=== PATIENT | male | born 1930 | race Caucasian/White ===

== ENCOUNTER 2017-01-01 18:46 | Observation (INO) | payer MEDICARE, OTHER ==
[~2017-01-01] VITALS: Ht 175.3 cm; Wt 75.0 kg
[~2017-01-01 18:46] MED LIST: ACTO15TA11 PO; ASPI1TAB69 PO; LABE100T2 PO; LEVA750T PO; LOVA10TA PO; SYMB160A INH
[2017-01-01 18:51] VITALS: BP 193/84; PULSE 102; RESP 16; TEMP 102.3; O2SAT 92
[2017-01-01 18:54] VITALS: BP 193/84; PULSE 97; RESP 16; O2SAT 96
[2017-01-01] MEDS ORDERED: SODIUM CHLOR 0.9% 1000 ML INJ 1,000 ML IV ONE (19:01)
[2017-01-01] MEDS ORDERED: D3 U5000 PO (19:06)
[2017-01-01] MEDS ORDERED: TAMS0.4C4 PO (19:06)
--- NOTE | 2017-01-01 19:07 | PD ---
HPI Chief Complaint: General Weakness Time Seen by Provider: 18:57 Travel History International Travel<30 days: No Contact w/Intl Traveler<30days: No Traveled to known affect area: No History of Present Illness HPI 86-year-old male with history of diabetes brought in by ambulance from home for evaluation of fever and altered mental status. On my assessment the patient is awake and alert, however he is confused and does not know where he is or why he is here. He denies any physical complaints. He is a very poor historian. Chart review shows that he was admitted for sepsis and pneumonia in October 2016. PFSH Past Medical History Arthritis: No Asthma: No Anxiety: No Heart Rhythm Problems: No Cancer: No Cardiovascular Problems: No High Cholesterol: Yes Chemotherapy: No Chest Pain: No Congestive Heart Failure: No COPD: No Cerebrovascular Accident: No Diabetes: Yes Diminished Hearing: No GERD: No Hiatal Hernia: No Hypertension: Yes Kidney Stones: No Psychiatric: No Respiratory: No Radiation Therapy: No Renal Failure: No Seizures: No Sickle Cell Disease: No Sleep Apnea: No Thyroid Disease: No Past Surgical History Abdominal Surgery: No AICD: No Ear Surgery: No Eye Surgery: No Genitourinary Surgery: No Gynecologic Surgery: No Joint Replacement: No Oral Surgery: No Pacemaker: No Thoracic Surgery: No Social History Alcohol Use: Yes (on occasion) Tobacco Use: No (quit 40 years ago) Substance Use: No Allergies-Medications (Allergen,Severity, Reaction): Coded Allergies: No Known Allergies (Unverified , 10/09/16) Reported Meds & Prescriptions Reported Meds & Active Scripts Active Actos (Pioglitazone HCl) 15 Mg Tab 30 Mg PO DAILYAC Labetalol (Labetalol HCl) 100 Mg Tab 200 Mg PO BID Symbicort Inh (Budesonide/Formoterol Fumarate) 160-4.5 Mcg/Act Aero 1 Puff INH Q12HR Reported D3 Ultra Strength (Cholecalciferol) 5,000 Unit Cap 5,000 Units PO DAILY Tamsulosin (Tamsulosin HCl) 0.4 Mg Cap 0.4 Mg PO HS Lovastatin 10 Mg Tab 10 Mg PO DAILY Aspirin 81 Mg Tabdr 81 Mg PO DAILY Review of Systems ROS Limitations: Poor Historian Physical Exam Narrative GENERAL: Well-developed, well-nourished, awake, alert, no acute distress. SKIN: Warm and dry. No rash. HEAD: Atraumatic. Normocephalic. EYES: Pupils equal and round. No scleral icterus. No injection or drainage. ENT: Mucous membranes pink and moist. NECK: Trachea midline. No JVD. No nuchal rigidity. CARDIOVASCULAR: Tachycardic, rate 101, regular. RESPIRATORY: No accessory muscle use. Clear to auscultation. Breath sounds equal bilaterally. GASTROINTESTINAL: Abdomen soft, non-tender, nondistended. MUSCULOSKELETAL: No obvious deformities. No clubbing. No cyanosis. No edema. NEUROLOGICAL: Awake and alert. No obvious cranial nerve deficits. Motor grossly within normal limits. Normal speech. Data Data Last Documented VS Vital Signs Date Time Temp Pulse Resp B/P Pulse Ox O2 Delivery O2 Flow Rate FiO2 01/01/17 21:12 88 16 132/61 96 Room Air 01/01/17 20:20 99.9 01/01/17 19:27 2 Orders Electrocardiogram (01/01/17 19:01) Complete Blood Count With Diff (01/01/17 19:01) Comprehensive Metabolic Panel (01/01/17 19:01) Lactic Acid Sepsis Protocol (01/01/17 19:01) Urinalysis - C+S If Indicated (01/01/17 19:01) Influenzae A/B Antigen (01/01/17 19:01) Blood Culture (01/01/17 19:01) Chest, Single Ap (01/01/17 19:01) Blood Glucose (01/01/17 19:01) Ecg Monitoring (01/01/17 19:01) Iv Access Insert/Monitor (01/01/17 19:01) Oximetry (01/01/17 19:01) Oxygen Administration (01/01/17 19:01) Sodium Chlor 0.9% 1000 Ml Inj (Ns 1000 M (01/01/17 19:01) Acetaminophen (Tylenol) (01/01/17 19:15) Ct Brain W/O Iv Contrast(Rout) (01/01/17 ) Cath For Specimen (01/01/17 19:43) Place In Observation (01/01/17 ) Vital Signs (Adult) Q4H (01/01/17 21:29) Neuro Checks Q4H (01/01/17 21:29) Activity Oob With Assistance (01/01/17 21:29) Director [employer] / Telemetry .CONTINUOUS (01/01/17 21:29) Diet 1800 Ada Cons Carb (01/02/17 Breakfast) Diet Heart Healthy (01/02/17 Breakfast) Sodium Chlor 0.9% 1000 Ml Inj (Ns 1000 M (01/01/17 21:29) Sodium Chloride 0.9% Flush (Ns Flush) (01/01/17 21:30) Sodium Chloride 0.9% Flush (Ns Flush) (01/02/17 09:00) Acetaminophen (Tylenol) (01/01/17 21:30) Ondansetron Inj (Zofran Inj) (01/01/17 21:30) Bisacodyl Supp (Dulcolax Supp) (01/01/17 21:30) Docusate Sodium (Colace) (01/01/17 21:30) Sennosides (Senokot) (01/01/17 21:30) Basic Metabolic Panel (Bmp) (01/02/17 06:00) Complete Blood Count With Diff (01/02/17 06:00) Resp Oxygen Puneet C Titrat 1-4 L (01/01/17 ) St Request For Service (01/01/17 21:29) Case Management Consult (01/01/17 21:29) Scd Bilateral/Knee High MIKE.BID (01/01/17 21:29) Acetaminophen (Tylenol) (01/01/17 21:30) Naloxone Inj (Narcan Inj) (01/01/17 21:30) St Cognitive Eval Order (01/01/17 21:29) Mri Brain W/O Contrast (01/01/17 ) Eeg Study (01/01/17 ) Labs Laboratory Tests Test 01/01/17 01/01/17 01/01/17 19:00 19:20 20:26 White Blood Count 5.6 TH/MM3 Red Blood Count 4.69 MIL/MM3 Hemoglobin 13.0 GM/DL Hematocrit 38.3 % Mean Corpuscular Volume 81.8 FL Mean Corpuscular Hemoglobin 27.8 PG Mean Corpuscular Hemoglobin 33.9 % Concent Red Cell Distribution Width 15.6 % Platelet Count 167 TH/MM3 Mean Platelet Volume 7.7 FL Neutrophils (%) (Auto) 86.0 % Lymphocytes (%) (Auto) 8.5 % Monocytes (%) (Auto) 5.2 % Eosinophils (%) (Auto) 0.0 % Basophils (%) (Auto) 0.3 % Neutrophils # (Auto) 4.8 TH/MM3 Lymphocytes # (Auto) 0.5 TH/MM3 Monocytes # (Auto) 0.3 TH/MM3 Eosinophils # (Auto) 0.0 TH/MM3 Basophils # (Auto) 0.0 TH/MM3 CBC Comment DIFF FINAL Differential Comment Sodium Level 132 MEQ/L Potassium Level 4.1 MEQ/L Chloride Level 97 MEQ/L Carbon Dioxide Level 26.9 MEQ/L Anion Gap 8 MEQ/L Blood Urea Nitrogen 19 MG/DL Creatinine 1.35 MG/DL Estimat Glomerular Filtration 50 ML/MIN Rate Random Glucose 187 MG/DL Calcium Level 8.6 MG/DL Total Bilirubin 0.7 MG/DL Aspartate Amino Transf 35 U/L (AST/SGOT) Alanine Aminotransferase 26 U/L (ALT/SGPT) Alkaline Phosphatase 69 U/L Total Protein 7.4 GM/DL Albumin 3.4 GM/DL Lactic Acid Level 1.2 mmol/L Urine Color YELLOW Urine Turbidity CLEAR Urine pH 5.0 Urine Specific [place] 1.017 Urine Protein TRACE mg/dL Urine Glucose (UA) 70 mg/dL Urine Ketones 40 mg/dL Urine Occult Blood MOD Urine Nitrite NEG Urine Bilirubin NEG Urine Urobilinogen LESS THAN 2.0 MG/DL Urine Leukocyte Esterase NEG Urine RBC 33 /hpf Urine WBC 2 /hpf Urine Mucus FEW /lpf Microscopic Urinalysis Comment CATH-CULT NOT IND MDM Medical Decision Making Medical Screen Exam Complete: Yes Emergency Medical Condition: Yes Medical Record Reviewed: Yes Differential Diagnosis Sepsis, pneumonia, metabolic abnormality, intracranial abnormality, meningitis/ encephalitis unlikely Narrative Course Initial vital signs show heart rate 102, blood pressure 193/84, pulse ox 92% on room air, oral temp of 102.3F. CBC shows to be BC 5.6, hemoglobin 13, hematocrit 38.3, platelets 167, neutrophils 86%. CMP is remarkable for sodium 132, chloride 97, BUN 19, creatinine 1.35, GFR 50 which is slightly worse than his baseline, random glucose 187, otherwise unremarkable. Lactic acid is 1.2. Influenza is negative. UA shows 40 ketones, moderate occult blood, 70 glucose, 33 RBCs. This was a catheterized specimen. Not suggestive of UTI. Chest X her shows no acute disease. Patient was given Tylenol. His tachycardia has resolved. He is still confused. He is able to tell me that he is in the emergency department. He denies any physical complaints. Several attempts were made to contact any family members, however 4 months or disconnected and we were unsuccessful. Given fever and delirium, the patient be admitted for overnight observation. There is no nuchal rigidity. I am not suspicious for meningitis or encephalitis. Patient could be suffering from a viral illness. Blood culture sent. Case discussed with hospitalist Dr. Clark who will admit the patient to his service for overnight observation for fever, delirium. Diagnosis Primary Impression: Fever Qualified Code: R50.9 - Fever, unspecified fever cause Additional Impression: Delirium Admitting Information Admitting Physician Requests: Observation Александр Silva MD Jan 01, 2017 19:07
[2017-01-01] MEDS ORDERED: ACETAMINOPHEN 325 MG TAB PO ONE (19:15)
[2017-01-01 19:27] VITALS: RESP 16; O2SAT 98
[2017-01-01 19:47] LABS: AUTOMATED NEUTROPHIL # 4.8 TH/MM3 (1.8-7.7); BASOPHIL % 0.3 % (0.0-2.0); HEMATOCRIT 38.3 % (39.0-51.0); HEMO FLAGS DIFF FINAL; LYMPH % 8.5 % (9.0-44.0); LYMPHOCYTE # 0.5 TH/MM3 (1.0-4.8); MEAN CELL VOLUME 81.8 FL (80.0-100.0); MEAN CORPUSCULAR HEMOGLOBIN 27.8 PG (27.0-34.0); MEAN CORPUSCULAR HGB CONC 33.9 % (32.0-36.0); MONO % 5.2 % (0.0-8.0); PLATELET COUNT 167 TH/MM3 (150-450); RED BLOOD COUNT 4.69 MIL/MM3 (4.50-5.90); RED CELL DISTRIBUTION WIDTH 15.6 % (11.6-17.2); WHITE BLOOD COUNT 5.6 TH/MM3 (4.0-11.0)
--- NOTE | 2017-01-01 19:56 | RADRPT ---
EXAM DATE/TIME: 01/01/2017 19:12 [facility] COMPARISON: CHEST SINGLE AP, October 09, 2016, 22:58. INDICATIONS : Fever MEDICAL HISTORY : Hypertension. Diabetes mellitus type II. SURGICAL HISTORY : None. ENCOUNTER: Initial ACUITY: 1 day PAIN SCORE: 0/10 LOCATION: Bilateral chest FINDINGS: A single view of the chest demonstrates the lungs to be symmetrically aerated without evidence of mas s, infiltrate or effusion. The cardiomediastinal contours are unremarkable. Osseous structures are intact. CONCLUSION: No acute disease. Wojciech Merino MD on January 01, 2017 at 19:54 Board Certified Radiologist. This report was verified electronically.
[2017-01-01 20:05] LABS: ALKALINE PHOSPHATASE 69 U/L (45-117); ALT (GPT) 26 U/L (12-78); ANION GAP 8 MEQ/L (5-15); AST (GOT) 35 U/L (15-37); BICARBONATE 26.9 MEQ/L (21.0-32.0); BLOOD UREA NITROGEN 19 MG/DL (7-18); CHLORIDE 97 MEQ/L (98-107); GLOMERULAR FILTRATION RATE 50 ML/MIN (>89); POTASSIUM 4.1 MEQ/L (3.5-5.1); SODIUM (NA) 132 MEQ/L (136-145); TOTAL BILIRUBIN ADULT 0.7 MG/DL (0.2-1.0)
--- NOTE | 2017-01-01 20:09 | RADRPT ---
EXAM DATE/TIME: 01/01/2017 19:34 [facility] COMPARISON: CT BRAIN W/O CONTRAST, July 12, 2015, 23:09. INDICATIONS : Altered mental status and weakness. RADIATION DOSE: 41.46 CTDIvol (mGy) MEDICAL HISTORY : Hypertension. Diabetes mellitus type 1. SURGICAL HISTORY : None. ENCOUNTER: Initial ACUITY: 2 days PAIN SCALE: Non-responsive LOCATION: cranial TECHNIQUE: Multiple contiguous axial images were obtained of the head. Using automated exposure control and adj ustment of the mA and/or kV according to patient size, radiation dose was kept as low as reasonably a chievable to obtain optimal diagnostic quality images. FINDINGS: CEREBRUM: Generalized volume loss and mild diffuse white matter hypodensity are noted. There's no evidence of a cute infarct, hemorrhage or mass effect. POSTERIOR FOSSA: The cerebellum and brainstem are intact. The 4th ventricle is midline. The cerebellopontine angle i s unremarkable. EXTRACRANIAL: The visualized portion of the orbits is intact. SKULL: The calvaria is intact. No evidence of skull fracture. CONCLUSION: Mild generalized atrophy and chronic white matter changes. No evidence of acute infarct, hemorrhage, mass or edema. Wojciech Merino MD on January 01, 2017 at 20:06 Board Certified Radiologist. This report was verified electronically.
[2017-01-01 20:20] VITALS: TEMP 99.9
[2017-01-01 20:43] LABS: BLOOD, URINE MOD (NEG); GLUCOSE,URINE 70 mg/dL (NEG); KETONE, URINE 40 mg/dL (NEG); MUCUS URINE FEW /lpf (OCC); NITRITE,URINE NEG (NEG); URINE COLOR YELLOW (YELLW/STRAW)
[2017-01-01 20:45] LABS: COMMENT (UR) CATH-CULT NOT IND; CULTURE IF INDICATED CATH CULTURE NOT IND
[2017-01-01 21:12] VITALS: BP 132/61; PULSE 88; RESP 16; O2SAT 96
[2017-01-01] MEDS ORDERED: SENNOSIDES 8.6 MG TAB PO PRN (21:30)
[2017-01-01] MEDS ORDERED: ACETAMINOPHEN 325 MG TAB PO PRN ×2 (21:30)
[2017-01-01] MEDS ORDERED: SODIUM CHLORIDE 0.9% FLUSH 5 ML FLUSH FLUSH PRN (21:30)
[2017-01-01] MEDS ORDERED: NALOXONE HCL 0.4 MG/ML AMP IV PRN (21:30)
[2017-01-01] MEDS ORDERED: ONDANSETRON HCL 4 MG/2 ML VIAL IVP PRN (21:30)
[2017-01-01] MEDS ORDERED: BISACODYL 10 MG SUPP PR PRN (21:30)
[2017-01-01] MEDS ORDERED: DEXTROSE 50% IN WATER 50 ML VIAL(D50) IV PUSH PRN (21:45)
[2017-01-01] MEDS ORDERED: GLUCAGON 1 MG/ML VIAL OTHER PRN (21:45)
--- NOTE | 2017-01-01 23:23 | RADRPT ---
EXAM DATE/TIME: 01/01/2017 22:44 [facility] COMPARISON: No previous studies available for comparison. INDICATIONS : Altered mental status. CVA. MEDICAL HISTORY : Diabetes mellitus type 2. Hypertension. SURGICAL HISTORY : Unknown. ENCOUNTER: Subsequent ACUITY: 1 day PAIN SCORE: 0/10 LOCATION: head. TECHNIQUE: Multiplanar, multisequence MRI of the brain was performed without contrast. FINDINGS: CEREBRUM: The ventricles are mildly enlarged No evidence of midline shift, mass lesion, hemorrhage or acute inf arction. No extraaxial fluid collections are seen. The pituitary gland and suprasellar cistern are normal in configuration. WHITE MATTER: Mild signal abnormalities are seen in the white matter. POSTERIOR FOSSA: The cerebellum and brainstem are intact. The 4th ventricle is midline. The cerebellopontine angle is unremarkable. The cerebellar tonsils are normal in position. DIFFUSION IMAGING: No focal areas of restricted diffusion are seen. No evidence of acute infarction. EXTRACRANIAL: The visualized portions of the orbits and paranasal sinuses are unremarkable. CONCLUSION: 1. No acute findings. Stable exam since July 2015. No recent infarct. Chronic mild to moderate w cathy matter ischemic changes and cortical volume loss. Jose Gonzalez MD on January 01, 2017 at 23:18 Board Certified Radiologist. This report was verified electronically.
--- NOTE | 2017-01-01 23:24 | HHI.HP ---
HPI [facility] Primary Care Physician Unknown Admission Diagnosis fever, delirium Diagnoses: Chief Complaint: Weakness Travel History International Travel<30 Days: No Contact w/Intl Traveler <30 Da: No Traveled to Known Affected Are: No Sepsis Criteria SIRS Criteria (2 or more): Temp > 100.9 or < 96.8, Heart rate over 90 Sepsis Criteria (SIRS+source): Infect source susp/known Criteria Outcome: Meets sepsis criteria History of Present Illness This is a 86-year-old male with history of diabetes, hyperlipidemia and hypertension. Brought in by ambulance from home for evaluation of fever and altered mental status. Patient states he came in because of weakness. He lives with his ex- Kacey but unable to remember her number stating that his mind is fuzzy right now. He recalls being brought in by ambulance. On my assessment the patient is awake and alert, oriented to person, place, month, date but not year. Patient remembers me from previous admission. According to ER physician, he did not know where he is or why he is here. Patient reports that he has been sick for the past week. Complains of worsening weakness stating he was not able to stand up because his legs were so weak today, intermittent fever temperature not taken, anorexia, productive cough of clear phlegm, runny nose and urinary frequency. Denies headache, dizziness, nausea, shortness of breath, abdominal pain, diarrhea, neck pain, numbness and focal weakness. Chart review shows that he was admitted for sepsis and pneumonia in October 2016. Review of Systems Constitutional: COMPLAINS OF: Fatigue, Fever, DENIES: Diaphoretic episodes, Weight gain, Weight loss, Chills, Dizziness, Change in appetite, Night Sweats Endocrine: DENIES: Heat/cold intolerance, Polydipsia, Polyuria, Polyphagia Eyes: DENIES: Blurred vision, Diplopia, Vision loss, Photosensitivity Ears, nose, mouth, throat: COMPLAINS OF: Running Nose, DENIES: Tinnitus, Vertigo, Throat pain, Hoarseness, Epistaxis, Odynophagia Respiratory: COMPLAINS OF: Cough, DENIES: Wheezing, Hemoptysis, Sputum production, Shortness of breath Cardiovascular: DENIES: Chest pain, Palpitations, Syncope, Dyspnea on Exertion , PND, Lower Extremity Edema, Orthopnea, Claudication Gastrointestinal: COMPLAINS OF: Anorexia, DENIES: Abdominal pain, Black stools , Bloody stools, Constipation, Diarrhea, Nausea, Vomiting, Difficulty Swallowing Genitourinary: COMPLAINS OF: Urinary frequency, DENIES: Urinary incontinence, Urgency, Hematuria, Dysuria, Nocturia, Penile Discharge Integumentary: DENIES: Rash Neurologic: DENIES: Headache, Localized weakness, Seizures, Tremor, Poor Balance Psychiatric: COMPLAINS OF: Confusion, DENIES: Anxiety, Depression, Hallucinations, Agitation, Suicidal Ideation, Homicidal Ideation, Delusions Past Family Social History Past Medical History As previously mentioned Past Surgical History Denies Reported Medications Actos (Pioglitazone HCl) 15 Mg Tab 30 Mg PO DAILYAC Labetalol (Labetalol HCl) 100 Mg Tab 200 Mg PO BID Symbicort Inh (Budesonide/Formoterol Fumarate) 160-4.5 Mcg/Act Aero 1 Puff INH Q12HR Reported D3 Ultra Strength (Cholecalciferol) 5,000 Unit Cap 5,000 Units PO DAILY Tamsulosin (Tamsulosin HCl) 0.4 Mg Cap 0.4 Mg PO HS Lovastatin 10 Mg Tab 10 Mg PO DAILY Aspirin 81 Mg Tabdr 81 Mg PO DAILY Allergies: Coded Allergies: No Known Allergies (Unverified , 10/09/16) Family History No diabetes Social History Occasional alcohol use. Quit tobacco years ago. Denies illicit drugs Physical Exam Vital Signs Vital Signs Date Time Temp Pulse Resp B/P Pulse Ox O2 Delivery O2 Flow Rate FiO2 01/01/17 21:12 88 16 132/61 96 Room Air 01/01/17 20:20 99.9 01/01/17 19:28 16 97 Room Air 01/01/17 19:27 97 Nasal Cannula 2 01/01/17 19:27 16 98 Room Air 01/01/17 18:54 97 16 193/84 96 Nasal Cannula 2 01/01/17 18:51 102.3 102 16 193/84 92 Physical Exam GENERAL: This is a well-nourished, well-developed patient, in no apparent distress. SKIN: No rashes, ecchymoses or lesions. Cool and dry. HEAD: Atraumatic. Normocephalic. No temporal or scalp tenderness. EYES: Pupils equal round and reactive. Extraocular motions intact. No scleral icterus. No injection or drainage. ENT: Nose without bleeding, purulent drainage or septal hematoma. Throat without erythema, tonsillar hypertrophy or exudate. Uvula midline. Airway patent. Dry oral mucosa. No sinus tenderness NECK: Trachea midline. No JVD or lymphadenopathy. Supple, nontender, no meningeal signs. CARDIOVASCULAR: Regular rate and rhythm without murmurs, gallops, or rubs. RESPIRATORY: Clear to auscultation. Breath sounds equal bilaterally. No wheezes , rales, or rhonchi. GASTROINTESTINAL: Abdomen soft, non-tender, nondistended. No guarding. MUSCULOSKELETAL: Extremities without clubbing, cyanosis, or edema. No joint tenderness, effusion, or edema noted. No calf tenderness. Negative Homans sign bilaterally. NEUROLOGICAL: Awake and alert. Oriented to person, place, month and date. Cranial nerves II through XII intact. Generalized weakness. Normal speech. Laboratory Laboratory Tests Test 01/01/17 01/01/17 01/01/17 19:00 19:20 20:26 White Blood Count 5.6 Red Blood Count 4.69 Hemoglobin 13.0 Hematocrit 38.3 Mean Corpuscular Volume 81.8 Mean Corpuscular Hemoglobin 27.8 Mean Corpuscular Hemoglobin 33.9 Concent Red Cell Distribution Width 15.6 Platelet Count 167 Mean Platelet Volume 7.7 Neutrophils (%) (Auto) 86.0 Lymphocytes (%) (Auto) 8.5 Monocytes (%) (Auto) 5.2 Eosinophils (%) (Auto) 0.0 Basophils (%) (Auto) 0.3 Neutrophils # (Auto) 4.8 Lymphocytes # (Auto) 0.5 Monocytes # (Auto) 0.3 Eosinophils # (Auto) 0.0 Basophils # (Auto) 0.0 CBC Comment DIFF FINAL Differential Comment Sodium Level 132 Potassium Level 4.1 Chloride Level 97 Carbon Dioxide Level 26.9 Anion Gap 8 Blood Urea Nitrogen 19 Creatinine 1.35 Estimat Glomerular Filtration 50 Rate Random Glucose 187 Calcium Level 8.6 Total Bilirubin 0.7 Aspartate Amino Transf 35 (AST/SGOT) Alanine Aminotransferase 26 (ALT/SGPT) Alkaline Phosphatase 69 Total Protein 7.4 Albumin 3.4 Lactic Acid Level 1.2 Urine Color YELLOW Urine Turbidity CLEAR Urine pH 5.0 Urine Specific [place] 1.017 Urine Protein TRACE Urine Glucose (UA) 70 Urine Ketones 40 Urine Occult Blood MOD Urine Nitrite NEG Urine Bilirubin NEG Urine Urobilinogen LESS THAN 2.0 Urine Leukocyte Esterase NEG Urine RBC 33 Urine WBC 2 Urine Mucus FEW Microscopic Urinalysis Comment CATH-CULT NOT IND Date/Time Procedure Status Source Growth 01/01/17 19:15 Influenza Types A,B Antigen (CHRISTY) - Final Complete Nasal Washing NEGATIVE FOR FLU A AND B ANTIGEN.... 01/01/17 19:15 Aerobic Blood Culture Received Blood Peripheral Pending 01/01/17 19:15 Anaerobic Blood Culture Received Blood Peripheral Pending Result Diagram: 01/01/17189901/01/171899 Imaging Chest x-ray image interpreted by me with no acute cardiopulmonary disease Last Impressions Chest X-Ray 01/01/171900 Signed Impressions: Service Date/Time: Sunday, January 01, 2017 19:12 - CONCLUSION: No acute disease. Wojciech Merino MD Head CT 01/01/17 0000 Signed Impressions: Service Date/Time: Sunday, January 01, 2017 19:34 - CONCLUSION: Mild generalized atrophy and chronic white matter changes. No evidence of acute infarct, hemorrhage, mass or edema. Wojciech Merino MD Assessment and Plan Problem List: (1) Sepsis ICD Code: A41.9 Status: Resolved Assessment and Plan This is a 86-year-old male with history of diabetes, hyperlipidemia and hypertension. Brought in by ambulance from home for evaluation of fever and altered mental status. Patient states he came in because of weakness. Patient reports that he has been sick for the past week. Complains of worsening weakness stating he was not able to stand up because his legs were so weak today , intermittent fever temperature not taken, anorexia, productive cough of clear phlegm, runny nose and urinary frequency. Sepsis with fever and tachycardia secondary to URI likely viral infection. Chest x-ray, flu screen and urinalysis unremarkable. Supportive therapy with IV hydration and symptomatic treatment. Follow-up blood cultures Encephalopathy secondary to above. Head CT without acute findings. Obtain MRI. Neurochecks. If persistent confusion and fever may need lumbar puncture Deconditioning. Consult physical therapy Traumatic hematuria. Monitor discontinue Evans catheter in the morning Chronic Kidney disease stage III. Creatinine slightly higher than previous secondary to dehydration. Start IV hydration Chronic medical conditions of diabetes, hyperlipidemia and hypertension. Continue outpatient medications as appropriate. Monitor fingersticks with sliding scale coverage DVT prophylaxis with SCD and early ambulation. Hold pharmacological prophylaxis may need lumbar puncture Discussed Condition With Patient ER staff Enrique Clark MD Jan 01, 2017 23:24
[2017-01-01] MEDS: SODIUM CHLOR 0.9% 1000 ML INJ 1,000 ML IV SCH (23:32)
[2017-01-01] MEDS: DOCUSATE SODIUM 100 MG CAP PO SCH (23:32)
[2017-01-02] VITALS (7 sets, daily range): BP systolic 99–142; BP diastolic 50–64; PULSE 68–88; RESP 17–20; TEMP 96.8–98.1; O2SAT 95–97
[2017-01-02 04:47] LABS: AUTOMATED NEUTROPHIL # 3.6 TH/MM3 (1.8-7.7); BASOPHIL % 0.1 % (0.0-2.0); HEMATOCRIT 33.7 % (39.0-51.0); HEMO FLAGS DIFF FINAL; MEAN CELL VOLUME 81.4 FL (80.0-100.0); MEAN CORPUSCULAR HEMOGLOBIN 27.2 PG (27.0-34.0); MEAN CORPUSCULAR HGB CONC 33.5 % (32.0-36.0); MONO % 8.1 % (0.0-8.0); NEUT % 72.8 % (16.0-70.0); PLATELET COUNT 159 TH/MM3 (150-450); RED BLOOD COUNT 4.14 MIL/MM3 (4.50-5.90); RED CELL DISTRIBUTION WIDTH 15.8 % (11.6-17.2)
[2017-01-02 05:12] LABS: BICARBONATE 25.9 MEQ/L (21.0-32.0); POTASSIUM 3.7 MEQ/L (3.5-5.1)
[2017-01-02] MEDS: INSULIN ASPART SUPPLEMENTAL SCALE SQ SCH ×4 (06:29→20:40)
[2017-01-02] MEDS: DOCUSATE SODIUM 100 MG CAP PO SCH ×3 (09:00→20:40)
[2017-01-02] MEDS: ASPIRIN EC 81 MG TABEC PO SCH (09:35)
[2017-01-02] MEDS: PIOGLITAZONE HCL 30 MG TAB PO SCH (09:35)
[2017-01-02] MEDS: LABETALOL HCL 200 MG TAB PO SCH ×2 (09:35→20:40)
[2017-01-02] MEDS: CHOLECALCIFEROL (VIT D3) 5000 UNIT CAP PO SCH (09:35)
[2017-01-02] MEDS: BUDESONIDE-FORMOTEROL 160/4.5 MCG INHALER INH SCH ×2 (09:35→20:40)
[2017-01-02] MEDS: PRAVASTATIN SOD 10 MG TAB PO SCH (09:35)
[2017-01-02] MEDS: SODIUM CHLORIDE 0.9% FLUSH 5 ML FLUSH FLUSH SCH ×2 (09:35→20:42)
[2017-01-02] MEDS: SODIUM CHLOR 0.9% 1000 ML INJ 1,000 ML IV SCH ×2 (09:59→22:29)
--- NOTE | 2017-01-02 10:55 | HHI.PR ---
Subjective Remarks Follow-up encephalopathy 01/02/17-patient seen and examined, alert and oriented 2, afebrile. No acute event overnight Objective Vitals Vital Signs Date Time Temp Pulse Resp B/P Pulse Ox O2 Delivery O2 Flow Rate FiO2 01/02/17 07:46 97.8 82 20 109/62 97 01/02/17 02:53 97.9 68 18 103/52 96 01/02/17 00:18 98.0 84 18 130/61 96 01/01/17 21:12 88 16 132/61 96 Room Air 01/01/17 20:20 99.9 01/01/17 19:28 16 97 Room Air 01/01/17 19:27 97 Nasal Cannula 2 01/01/17 19:27 16 98 Room Air 01/01/17 18:54 97 16 193/84 96 Nasal Cannula 2 01/01/17 18:51 102.3 102 16 193/84 92 I/O 01/01/17 01/01/17 01/01/17 01/02/17 01/02/17 01/02/17 07:00 15:00 23:00 07:00 15:00 23:00 Intake Total 120 ml Balance 120 ml Intake Oral 120 ml Result Diagram: 01/02/17 0413 01/02/17 0413 Imaging Last Impressions Chest X-Ray 01/01/17 1901 Signed Impressions: Service Date/Time: Sunday, January 01, 2017 19:12 - CONCLUSION: No acute disease. Wojciech Merino MD Head CT 01/01/17 0000 Signed Impressions: Service Date/Time: Sunday, January 01, 2017 19:34 - CONCLUSION: Mild generalized atrophy and chronic white matter changes. No evidence of acute infarct, hemorrhage, mass or edema. Wojciech Merino MD Brain MRI 01/01/17 0000 Signed Impressions: Service Date/Time: Sunday, January 01, 2017 22:44 - CONCLUSION: 1. No acute findings. Stable exam since July 2015. No recent infarct. Chronic mild to moderate white matter ischemic changes and cortical volume loss. Jose Gonzalez MD Objective Remarks GENERAL: NAD SKIN: Warm and dry. HEAD: Normocephalic. EYES: No scleral icterus. No injection or drainage. NECK: Supple, trachea midline. No JVD or lymphadenopathy. CARDIOVASCULAR: Regular rate and rhythm without murmurs, gallops, or rubs. RESPIRATORY: Breath sounds equal bilaterally. No accessory muscle use. GASTROINTESTINAL: Abdomen soft, non-tender, nondistended. MUSCULOSKELETAL: No cyanosis, or edema. BACK: Nontender without obvious deformity. No CVA tenderness. A/P Problem List: (1) Sepsis ICD Code: A41.9 Status: Resolved (2) Toxic metabolic encephalopathy ICD Code: G92 Status: Acute (3) Acute renal failure ICD Code: N17.9 Status: Acute Assessment and Plan 86-year-old male with 1-Sepsis with fever and tachycardia secondary to URI likely viral infection. Resolved. Chest x-ray, flu screen and urinalysis unremarkable. Supportive therapy with IV hydration and symptomatic treatment. Follow-up blood cultures 2-Toxic metabolic Encephalopathy secondary to above. Resolved. Head CT without acute findings. 3-Physical Deconditioning. Consult physical therapy 4-Traumatic hematuria. Resolved 5-Acute on Chronic Kidney disease stage III. Creatinine slightly higher than previous secondary to dehydration. Improved with IV fluid hydration 6-Chronic medical conditions of diabetes, hyperlipidemia and hypertension. Continue outpatient medications as appropriate. Monitor fingersticks with sliding scale coverage 7-DVT prophylaxis with SCD and early ambulation. Discharge Planning Discharge patient to home Condition on discharge: Improved Regular Diet as tolerated Ad Felicia activity Rx written:none Follow-up with primary care physician Iain Maddox MD Jan 02, 2017 10:55
[2017-01-02] MEDS: TAMSULOSIN HCL 0.4 MG CAP PO SCH (20:40)
[2017-01-03 03:08] VITALS: BP 100/45; PULSE 79; RESP 16; TEMP 98.1; O2SAT 95
[2017-01-03] MEDS: INSULIN ASPART SUPPLEMENTAL SCALE SQ SCH ×4 (06:12→21:00)
[2017-01-03 07:26] VITALS: BP 114/58; PULSE 78; RESP 18; TEMP 98; O2SAT 93
[2017-01-03] MEDS: SODIUM CHLORIDE 0.9% FLUSH 5 ML FLUSH FLUSH SCH ×2 (08:09→21:00)
--- NOTE | 2017-01-03 08:21 | HHI.PR ---
Subjective Remarks Follow-up encephalopathy 01/02/17-patient seen and examined, alert and oriented 2, afebrile. No acute event overnight 01/03/17-patient seen and examined, alert and oriented 2, patient is asking if he can be discharged home today. No acute event overnight. Objective Vitals Vital Signs Date Time Temp Pulse Resp B/P Pulse Ox O2 Delivery O2 Flow Rate FiO2 01/03/17 07:26 98.0 78 18 114/58 93 01/03/17 03:08 98.1 79 16 100/45 95 01/02/17 23:34 98.1 88 18 104/53 95 01/02/17 20:00 96.8 86 18 142/64 96 01/02/17 20:00 96 01/02/17 16:06 97.6 77 17 118/56 95 01/02/17 11:42 97.9 75 18 99/50 95 Result Diagram: 01/02/17 0413 01/02/17 0413 Objective Remarks GENERAL: NAD SKIN: Warm and dry. HEAD: Normocephalic. EYES: No scleral icterus. No injection or drainage. NECK: Supple, trachea midline. No JVD or lymphadenopathy. CARDIOVASCULAR: Regular rate and rhythm without murmurs, gallops, or rubs. RESPIRATORY: Breath sounds equal bilaterally. No accessory muscle use. GASTROINTESTINAL: Abdomen soft, non-tender, nondistended. MUSCULOSKELETAL: No cyanosis, or edema. BACK: Nontender without obvious deformity. No CVA tenderness. A/P Problem List: (1) Sepsis ICD Code: A41.9 Status: Resolved (2) Toxic metabolic encephalopathy ICD Code: G92 Status: Acute (3) Acute renal failure ICD Code: N17.9 Status: Acute Assessment and Plan 86-year-old male with 1-Sepsis with fever and tachycardia secondary to URI likely viral infection. Resolved. Chest x-ray, flu screen and urinalysis unremarkable. Supportive therapy . Follow-up blood cultures 2-Toxic metabolic Encephalopathy secondary to above. Resolved. Head CT without acute findings. 3-Physical Deconditioning.physical therapy to treat 4-Traumatic hematuria. Resolved 5-Acute on Chronic Kidney disease stage III. Creatinine slightly higher than previous secondary to dehydration. Improved with IV fluid hydration 6-Chronic medical conditions of diabetes, hyperlipidemia and hypertension. Continue outpatient medications as appropriate. Monitor fingersticks with sliding scale coverage 7-DVT prophylaxis with SCD and early ambulation. Discharge Planning Discharge patient to SNF Condition on discharge: Improved ADA Diet as tolerated Ad Felicia activity Rx written:none Follow-up with primary care physician Iain Maddox MD Jan 03, 2017 08:21
[2017-01-03] MEDS: SODIUM CHLOR 0.9% 1000 ML INJ 1,000 ML IV SCH ×2 (09:42→23:29)
[2017-01-03] MEDS: PRAVASTATIN SOD 10 MG TAB PO SCH (09:42)
[2017-01-03] MEDS: ASPIRIN EC 81 MG TABEC PO SCH (09:42)
[2017-01-03] MEDS: PIOGLITAZONE HCL 30 MG TAB PO SCH (09:42)
[2017-01-03] MEDS: LABETALOL HCL 200 MG TAB PO SCH ×2 (09:42→21:57)
[2017-01-03] MEDS: CHOLECALCIFEROL (VIT D3) 5000 UNIT CAP PO SCH (09:42)
[2017-01-03] MEDS: BUDESONIDE-FORMOTEROL 160/4.5 MCG INHALER INH SCH ×2 (09:42→21:57)
[2017-01-03] MEDS: DOCUSATE SODIUM 100 MG CAP PO SCH ×2 (09:42→21:57)
[2017-01-03 11:00] VITALS: BP 131/66; PULSE 85; RESP 17; TEMP 95.6; O2SAT 94
--- NOTE | 2017-01-03 11:50 | EKG ---
Date Performed: 01/01/2017 Time Performed: 19:18:21 PTAGE: 86 years EKG: Sinus rhythm NONSPECIFIC T-WAVE ABNORMALITY BORDERLINE ECG PREVIOUS TRACING : 10/09/2016 23.16 DOCTOR: Chicho Ochoa Interpretating Date/Time 01/03/2017 11:48:24
[2017-01-03 15:38] VITALS: BP 123/69; PULSE 83; RESP 18; TEMP 98.5; O2SAT 90
[2017-01-03 20:00] VITALS: BP 123/69; PULSE 61; RESP 16; TEMP 97.9; O2SAT 94
[2017-01-03] MEDS: TAMSULOSIN HCL 0.4 MG CAP PO SCH (21:57)
[2017-01-04] VITALS: BP 120/72; PULSE 74; RESP 18; TEMP 98; O2SAT 95
[2017-01-04 04:00] VITALS: BP 120/74; PULSE 64; RESP 18; TEMP 97.6; O2SAT 97
[2017-01-04] MEDS: INSULIN ASPART SUPPLEMENTAL SCALE SQ SCH ×2 (06:15→12:00)
[2017-01-04 07:27] VITALS: BP 153/80; PULSE 81; RESP 18; TEMP 98.4; O2SAT 90
[2017-01-04] MEDS: ASPIRIN EC 81 MG TABEC PO SCH (08:37)
[2017-01-04] MEDS: SODIUM CHLORIDE 0.9% FLUSH 5 ML FLUSH FLUSH SCH (08:37)
[2017-01-04] MEDS: BUDESONIDE-FORMOTEROL 160/4.5 MCG INHALER INH SCH (08:37)
[2017-01-04] MEDS: LABETALOL HCL 200 MG TAB PO SCH (08:37)
[2017-01-04] MEDS: PRAVASTATIN SOD 10 MG TAB PO SCH (08:37)
[2017-01-04] MEDS: CHOLECALCIFEROL (VIT D3) 5000 UNIT CAP PO SCH (08:37)
[2017-01-04] MEDS: DOCUSATE SODIUM 100 MG CAP PO SCH (08:37)
[2017-01-04] MEDS: PIOGLITAZONE HCL 30 MG TAB PO SCH (08:37)
--- NOTE | 2017-01-04 09:54 | HHI.PR ---
Subjective Remarks Follow-up encephalopathy 01/02/17-patient seen and examined, alert and oriented 2, afebrile. No acute event overnight 01/03/17-patient seen and examined, alert and oriented 2, patient is asking if he can be discharged home today. No acute event overnight. 01/04/17-patient seen and examined; no acute event overnight and stable Objective Vitals Vital Signs Date Time Temp Pulse Resp B/P Pulse Ox O2 Delivery O2 Flow Rate FiO2 01/04/17 07:27 98.4 81 18 153/80 90 01/04/17 04:00 97.6 64 18 120/74 97 01/04/17 00:00 98.0 74 18 120/72 95 01/03/17 20:00 97.9 61 16 123/69 94 01/03/17 15:38 98.5 83 18 123/69 90 01/03/17 11:00 95.6 85 17 131/66 94 I/O 01/03/17 01/03/17 01/03/17 01/04/17 01/04/17 01/04/17 07:00 15:00 23:00 07:00 15:00 23:00 Intake Total 1440 ml Output Total 650 ml Balance 790 ml Intake Oral 1440 ml Output Urine Total 650 ml # Voids 4 # Bowel Movements 0 Result Diagram: 01/02/17 0413 01/02/17 041 Objective Remarks GENERAL: NAD SKIN: Warm and dry. HEAD: Normocephalic. EYES: No scleral icterus. No injection or drainage. NECK: Supple, trachea midline. No JVD or lymphadenopathy. CARDIOVASCULAR: Regular rate and rhythm without murmurs, gallops, or rubs. RESPIRATORY: Breath sounds equal bilaterally. No accessory muscle use. GASTROINTESTINAL: Abdomen soft, non-tender, nondistended. MUSCULOSKELETAL: No cyanosis, or edema. BACK: Nontender without obvious deformity. No CVA tenderness. A/P Problem List: (1) Sepsis ICD Code: A41.9 Status: Resolved (2) Toxic metabolic encephalopathy ICD Code: G92 Status: Acute (3) Acute renal failure ICD Code: N17.9 Status: Acute Assessment and Plan 86-year-old male with 1-Sepsis with fever and tachycardia secondary to URI likely viral infection. Resolved. Chest x-ray, flu screen and urinalysis unremarkable. Supportive therapy . 2-Toxic metabolic Encephalopathy secondary to above. Resolved. Head CT without acute findings. 3-Physical Deconditioning.physical therapy to treat 4-Traumatic hematuria. Resolved 5-Acute on Chronic Kidney disease stage III. Creatinine slightly higher than previous secondary to dehydration. Improved with IV fluid hydration 6-Chronic medical conditions of diabetes, hyperlipidemia and hypertension. Continue outpatient medications as appropriate. Monitor fingersticks with sliding scale coverage 7-DVT prophylaxis with SCD and early ambulation. Discharge Planning Discharge patient to SNF Condition on discharge: Improved ADA Diet as tolerated Ad Felicia activity Rx written:none Follow-up with primary care physician Iain Maddox MD Jan 04, 2017 09:54
[2017-01-04 11:12] VITALS: BP 103/62; PULSE 73; RESP 16; TEMP 97.9; O2SAT 94
--- NOTE | 2017-01-04 11:40 | HHI.FF ---
Face to Face Verification Diagnosis: (1) Diabetes mellitus (2) Toxic metabolic encephalopathy (3) Acute renal failure (4) Delirium Physical Therapy Order: Evaluate and Treat Home Health Nursing Order: Signs/symptoms of disease process I have seen patient Iglesia Mcdermott on 01/04/17. My clinical findings support the need for the requested home health care services because: Deconditioned w/ increased weakness I certify that my clinical findings support that this patient is homebound because: Poor cardiac reserve Iain Maddox MD Jan 04, 2017 11:40
[2017-01-04] MEDS: SODIUM CHLOR 0.9% 1000 ML INJ 1,000 ML IV SCH (11:59)
--- NOTE | 2017-01-04 13:08 | HHI.DS ---
Discharge Summary Admission Date Jan 01, 2017 at 21:36 Discharge Date: Jan 04, 2017 Admitting Diagnosis fever, delirium (1) Sepsis ICD Code: A41.9 (2) Toxic metabolic encephalopathy ICD Code: G92 (3) Acute renal failure ICD Code: N17.9 Procedures none Brief History - From Admission This is a 86-year-old male with history of diabetes, hyperlipidemia and hypertension. Brought in by ambulance from home for evaluation of fever and altered mental status. Patient states he came in because of weakness. He lives with his ex- Kacey but unable to remember her number stating that his mind is fuzzy right now. He recalls being brought in by ambulance. On my assessment the patient is awake and alert, oriented to person, place, month, date but not year. Patient remembers me from previous admission. According to ER physician, he did not know where he is or why he is here. Patient reports that he has been sick for the past week. Complains of worsening weakness stating he was not able to stand up because his legs were so weak today, intermittent fever temperature not taken, anorexia, productive cough of clear phlegm, runny nose and urinary frequency. Denies headache, dizziness, nausea, shortness of breath, abdominal pain, diarrhea, neck pain, numbness and focal weakness. Chart review shows that he was admitted for sepsis and pneumonia in October 2016. CBC/BMP: 01/02/17 0413 01/02/17 0413 Significant Findings Laboratory Tests Test 01/01/17 01/01/17 01/02/17 19:00 20:26 04:13 Hematocrit 38.3 % 33.7 % (39.0-51.0) (39.0-51.0) Neutrophils (%) (Auto) 86.0 % 72.8 % (16.0-70.0) (16.0-70.0) Lymphocytes (%) (Auto) 8.5 % (9.0-44.0) Lymphocytes # (Auto) 0.5 TH/MM3 (1.0-4.8) Sodium Level 132 MEQ/L (136-145) Chloride Level 97 MEQ/L (98-107) Blood Urea Nitrogen 19 MG/DL (7-18) 21 MG/DL (7-18) Creatinine 1.35 MG/DL (0.60-1.30) Estimat Glomerular Filtration 50 ML/MIN (>89) 60 ML/MIN (>89) Rate Random Glucose 187 MG/DL 156 MG/DL (74-106) (74-106) Urine Glucose (UA) 70 mg/dL (NEG) Urine Ketones 40 mg/dL (NEG) Urine Occult Blood MOD (NEG) Urine RBC 33 /hpf (0-3) Urine Mucus FEW /lpf (OCC) Red Blood Count 4.14 MIL/MM3 (4.50-5.90) Hemoglobin 11.3 GM/DL (13.0-17.0) Monocytes (%) (Auto) 8.1 % (0.0-8.0) Calcium Level 8.2 MG/DL (8.5-10.1) PE at Discharge GENERAL: NAD SKIN: Warm and dry. HEAD: Normocephalic. EYES: No scleral icterus. No injection or drainage. NECK: Supple, trachea midline. No JVD or lymphadenopathy. CARDIOVASCULAR: Regular rate and rhythm without murmurs, gallops, or rubs. RESPIRATORY: Breath sounds equal bilaterally. No accessory muscle use. GASTROINTESTINAL: Abdomen soft, non-tender, nondistended. MUSCULOSKELETAL: No cyanosis, or edema. BACK: Nontender without obvious deformity. No CVA tenderness. Hospital Course 1-Sepsis with fever and tachycardia secondary to URI likely viral infection. Resolved. Chest x-ray, flu screen and urinalysis unremarkable. Supportive therapy . 2-Toxic metabolic Encephalopathy secondary to above. Resolved. Head CT without acute findings. 3-Physical Deconditioning.physical therapy to treat 4-Traumatic hematuria. Resolved 5-Acute on Chronic Kidney disease stage III. Creatinine slightly higher than previous secondary to dehydration. Improved with IV fluid hydration 6-Chronic medical conditions of diabetes, hyperlipidemia and hypertension. Continue outpatient medications as appropriate. Monitor fingersticks with sliding scale coverage 7-DVT prophylaxis with SCD and early ambulation. Pt Condition on Discharge: Fair Discharge Disposition: Disch w/ Home Health Serv Discharge Time: > 30 minutes Discharge Instructions DIET: Follow Instructions for: Heart Healthy Diet Activities you can perform: Regular-No Restrictions Follow up Referrals: PCP Follow-up - 2-3 Days Continued Medications: Aspirin (Aspirin) 81 Mg Tabdr 81 MG PO DAILY TAB Budesonide-Formoterol Inh (Symbicort Inh) 160-4.5 Mcg/Act Aero 1 PUFF INH Q12HR PUL #1 Ref 2 INHALER Cholecalciferol (D3 Ultra Strength) 5,000 Unit Cap 5000 UNITS PO DAILY Nutritional Supplement #30 Ref 0 CAP Labetalol (Labetalol) 100 Mg Tab 200 MG PO BID HTN #60 TAB Lovastatin (Lovastatin) 10 Mg Tab 10 MG PO DAILY Cholesterol Management #30 Ref 0 TAB Pioglitazone (Actos) 15 Mg Tab 30 MG PO DAILYAC DM #30 TAB Tamsulosin (Tamsulosin) 0.4 Mg Cap 0.4 MG PO HS Manage Prostate Problems #30 Ref 0 CAP Iain Maddox MD Jan 04, 2017 13:08
== END 2017-01-04 13:03 | disposition home or self-care (01) ==
LOC: NEPE 18:46 → NEDA 21:36 → NEPHCDU 23:41
PROVIDERS: ADMIT Hospitalist; ATTEND Hospitalist
DX: G92 Toxic encephalopathy (principal); J06.9 Acute upper respiratory infection, unspecified; R50.9 Fever, unspecified; A41.9 Sepsis, unspecified organism; N18.3 Chronic kidney disease, stage 3 (moderate); I12.9 Hypertensive chronic kidney disease with stage 1 through stage 4 chronic kidney disease, or unspecified chronic kidney disease; E78.5 Hyperlipidemia, unspecified; E11.22 Type 2 diabetes mellitus with diabetic chronic kidney disease; R09.89 Other specified symptoms and signs involving the circulatory and respiratory systems; R35.0 Frequency of micturition; E78.00 Pure hypercholesterolemia, unspecified; Z87.891 Personal history of nicotine dependence; R31.9 Hematuria, unspecified; E86.0 Dehydration; N17.9 Acute kidney failure, unspecified; Z79.899 Other long term (current) drug therapy; R53.1 Weakness; Z87.01 Personal history of pneumonia (recurrent)
CPT/HCPCS: 70450; 70551; 71010; 80048; 80053; 81001; 82948; 83605; 85025; 87040; 87804; 92610; 93005; 96125; 97110; 97116; 97163; 97532; 99285; G0378; G8987; G8988; G8996; G8997; G8998; G9168; G9169; G9170; J1815; J7030; P9612